=== PATIENT | female | born 2000 | race Caucasian/White ===

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

== ENCOUNTER 2021-01-07 07:10 | Emergency (ER) | payer OTHER ==
[2021-01-07 08:08] LABS: BASOPHIL 1.3 % (0-2); HCT 37.1 % (37.0-47.0); HGB 11.6 g/dl (12.5-16.0); LYMPHOCYTE 43.1 % (15-48); MCH 26.4 pg (25.0-31.0); MCHC 31.3 g/dL (32.0-36.0); MCV 84.5 fL (78.0-100.0); MONOCYTE 10.6 % (0-12); MPV 10.3 fL (6.0-9.5); NEUTROPHIL 42.8 % (41-80); NRBC 0; PLT 312 K/uL (150-400); RBC 4.39 M/uL (4.20-5.40); RDW 13.5 % (11.5-14.0); WBC 6.4 K/uL (4.0-10.5)
[2021-01-07 08:10] LABS: BILIRUBIN NEGATIVE (NEGATIVE); BLOOD NEGATIVE Ery/uL (NEGATIVE); CLARITY CLEAR (CLEAR); COLOR YELLOW (YELLOW); GLUCOSE (U) NORMAL (NORMAL); LEUKOCYTES NEGATIVE Leu/uL (NEGATIVE); NITRITE NEGATIVE (NEGATIVE); PROTEIN NEGATIVE (NEGATIVE); UROBILINOGEN 0.2 mg/dL (0.2-1.0)
[2021-01-07 08:21] LABS: BUN 11 mg/dL (7-18); BUN/CREAT RATIO (CALC) 13.9 RATIO; CHLORIDE 106 mmol/L (98-107); CO2 (BICARBONATE) 24 mmol/L (21-32); CREATININE 0.79 mg/dL (0.51-0.95); GLUCOSE 96 mg/dL (74-106); POTASSIUM 4.3 mmol/L (3.5-5.1)
[2021-01-07 08:24] LABS: C-REACTIVE PROTEIN < 0.20 mg/dL (<=0.90)
== END 2021-01-07 10:11 | disposition home or self-care (01) ==
LOC: FER 07:10
PROVIDERS: Emergency Medicine
DX: R51.9 Headache, unspecified (principal); M54.2 Cervicalgia; Z20.822 Contact with and (suspected) exposure to COVID-19
CPT/HCPCS: 36415; 70551; 80048; 81003; 85025; 86140; J0780; J1200; J1885; J2405; J7030; U0002

== ENCOUNTER 2021-03-06 01:10 | Emergency (ER) | payer OTHER ==
[2021-03-06 02:09] LABS: BASOPHIL 0.9 % (0-2); HCT 35.6 % (37.0-47.0); HGB 11.4 g/dl (12.5-16.0); LYMPHOCYTE 29.3 % (15-48); MCH 26.1 pg (25.0-31.0); MCV 81.7 fL (78.0-100.0); MONOCYTE 8.9 % (0-12); MPV 10.5 fL (6.0-9.5); NEUTROPHIL 59.8 % (41-80); NRBC 0; PLT 312 K/uL (150-400); RBC 4.36 M/uL (4.20-5.40); RDW 14.6 % (11.5-14.0); WBC 9.2 K/uL (4.0-10.5)
[2021-03-06 02:26] LABS: BILIRUBIN - TOTAL 0.4 mg/dL (0.2-1.0); BUN/CREAT RATIO (CALC) 15.5 RATIO; CREATININE 0.84 mg/dL (0.51-0.95); GLOBULIN (CALCULATION) 3.3 g/dL; POTASSIUM 3.6 mmol/L (3.5-5.1); TOTAL PROTEIN 7.3 g/dL (6.4-8.2)
[2021-03-06] MEDS ORDERED: CARAFATE1 GM PO (03:33)
== END 2021-03-06 03:45 | disposition home or self-care (01) ==
LOC: FER 01:10
PROVIDERS: Emergency Medicine Emergency Medical Services
DX: R51.9 Headache, unspecified (principal); R07.89 Other chest pain
CPT/HCPCS: 36415; 71045; 80053; 84484; 85025; 93005; J1885; J2405; J7030

== ENCOUNTER 2021-04-21 15:06 | Emergency (ER) | payer OTHER ==
[2021-04-21 16:03] LABS: BASOPHIL 0.7 % (0-2); EOSINOPHIL 1.5 % (0-5); HCT 34.6 % (37.0-47.0); HGB 11.3 g/dl (12.5-16.0); LYMPHOCYTE 17.1 % (15-48); MCH 26.7 pg (25.0-31.0); MCHC 32.7 g/dL (32.0-36.0); MCV 81.6 fL (78.0-100.0); MONOCYTE 10.2 % (0-12); MPV 10.7 fL (6.0-9.5); NEUTROPHIL 70.2 % (41-80); NRBC 0; PLT 336 K/uL (150-400); RBC 4.24 M/uL (4.20-5.40); RDW 15.4 % (11.5-14.0); WBC 14.5 K/uL (4.0-10.5)
[2021-04-21 16:31] LABS: BILIRUBIN NEGATIVE (NEGATIVE); BLOOD NEGATIVE Ery/uL (NEGATIVE); CLARITY CLEAR (CLEAR); COLOR YELLOW (YELLOW); GLUCOSE (U) NORMAL (NORMAL); LEUKOCYTES NEGATIVE Leu/uL (NEGATIVE); NITRITE NEGATIVE (NEGATIVE); PROTEIN NEGATIVE (NEGATIVE); SPECIFIC GRAVITY 1.015 (1.001-1.030); UROBILINOGEN 0.2 mg/dL (0.2-1.0); pH 8.5 (5.0-9.0)
[2021-04-21 17:05] LABS: ALBUMIN 4.3 g/dL (3.4-5.0); BILIRUBIN - TOTAL 0.3 mg/dL (0.2-1.0); BUN/CREAT RATIO (CALC) 14.3 RATIO; CREATININE 0.7 mg/dL (0.51-0.95); GLOBULIN (CALCULATION) 3.1 g/dL; POTASSIUM 3.5 mmol/L (3.5-5.1); TOTAL PROTEIN 7.4 g/dL (6.4-8.2)
[2021-04-21] MEDS ORDERED: ZOFRAN4 M1 PO (17:27)
== END 2021-04-21 18:11 | disposition home or self-care (01) ==
LOC: FER 15:06
PROVIDERS: Physician Assistant
DX: U07.1 COVID-19 (principal)
CPT/HCPCS: 36415; 80053; 81001; 85025; 93005; J2405; J7040; U0002

== ENCOUNTER 2021-07-15 00:42 | Emergency (ER) | payer OTHER | END 2021-07-15 01:40 | disposition home or self-care (01) | LOC: FER 00:42 | DX: K21.9 Gastro-esophageal reflux disease without esophagitis (principal); R07.89 Other chest pain; Z20.822 Contact with and (suspected) exposure to COVID-19 | CPT/HCPCS: 36415; 71045; 84484; 93005; U0002 ==

== ENCOUNTER 2021-08-26 23:08 | Emergency (ER) | payer OTHER ==
[2021-08-27 00:55] LABS: BILIRUBIN 1+ mg/dL (NEGATIVE); BLOOD NEGATIVE Ery/uL (NEGATIVE); CLARITY CLEAR (CLEAR); COLOR YELLOW (YELLOW); GLUCOSE (U) NORMAL (NORMAL); LEUKOCYTES NEGATIVE Leu/uL (NEGATIVE); NITRITE NEGATIVE (NEGATIVE); PROTEIN TRACE (LOW) mg/dL (NEGATIVE); SPECIFIC GRAVITY >=1.030 (1.001-1.030); UROBILINOGEN 0.2 mg/dL (0.2-1.0); pH 6.5 (5.0-9.0)
[2021-08-27 00:55] LABS: BASOPHIL 1.2 % (0-2); EOSINOPHIL 1.9 % (0-5); HCT 37.6 % (37.0-47.0); HGB 12.5 g/dl (12.5-16.0); LYMPHOCYTE 41.3 % (15-48); MCH 27.8 pg (25.0-31.0); MCHC 33.2 g/dL (32.0-36.0); MCV 83.7 fL (78.0-100.0); MPV 10.7 fL (6.0-9.5); NEUTROPHIL 46.5 % (41-80); NRBC 0; PLT 323 K/uL (150-400); RBC 4.49 M/uL (4.20-5.40); RDW 13.1 % (11.5-14.0); WBC 9.4 K/uL (4.0-10.5)
[2021-08-27 01:18] LABS: ALBUMIN 4.7 g/dL (3.4-5.0); BILIRUBIN - TOTAL 0.4 mg/dL (0.2-1.0); BUN/CREAT RATIO (CALC) 11.9 RATIO; CREATININE 0.84 mg/dL (0.51-0.95); POTASSIUM 3.4 mmol/L (3.5-5.1); TOTAL PROTEIN 7.7 g/dL (6.4-8.2)
== END 2021-08-27 03:20 | disposition home or self-care (01) ==
LOC: FER 23:08
PROVIDERS: Emergency Medicine
DX: R10.13 Epigastric pain (principal)
CPT/HCPCS: 36415; 80053; 81003; 82150; 83690; 85025; C9113; J2405; J7030; Q9967

== ENCOUNTER 2021-08-30 01:43 | Emergency (ER) | payer OTHER ==
[2021-08-30] MEDS ORDERED: ATARAX25 MG PO (16:06)
[2021-08-30] MEDS ORDERED: BACLOFEN 10MG T10 MG PO (16:06)
[2021-08-30] MEDS ORDERED: NAPROXEN500 MG PO (16:06)
== END 2021-08-30 03:53 | disposition home or self-care (01) ==
LOC: FER 01:43
DX: G43.909 Migraine, unspecified, not intractable, without status migrainosus (principal)
CPT/HCPCS: J0780; J1200; J1885; J2405; J7030

== ENCOUNTER 2021-08-30 14:01 | Emergency (ER) | payer OTHER ==
[2021-08-30 14:47] LABS: BILIRUBIN NEGATIVE (NEGATIVE); BLOOD 1+ Ery/uL (NEGATIVE); CLARITY CLEAR (CLEAR); COLOR YELLOW (YELLOW); GLUCOSE (U) NORMAL (NORMAL); LEUKOCYTES NEGATIVE Leu/uL (NEGATIVE); NITRITE NEGATIVE (NEGATIVE); PROTEIN NEGATIVE (NEGATIVE); UROBILINOGEN 0.2 mg/dL (0.2-1.0)
[2021-08-30 14:50] LABS: BASOPHIL 1.3 % (0-2); HCT 37.6 % (37.0-47.0); HGB 12.2 g/dl (12.5-16.0); LYMPHOCYTE 23.8 % (15-48); MCH 27.9 pg (25.0-31.0); MCHC 32.4 g/dL (32.0-36.0); MCV 85.8 fL (78.0-100.0); MPV 10.7 fL (6.0-9.5); NEUTROPHIL 62.9 % (41-80); NRBC 0; PLT 295 K/uL (150-400); RBC 4.38 M/uL (4.20-5.40); RDW 13.2 % (11.5-14.0); WBC 7.8 K/uL (4.0-10.5)
[2021-08-30 14:53] LABS: BARBITURATES NEGATIVE (NEGATIVE); ECSTASY (MDMA) NEGATIVE (NEGATIVE); MARIJUANA (THC) NEGATIVE (NEGATIVE); METHADONE NEGATIVE (NEGATIVE); OPIATES NEGATIVE (NEGATIVE)
[2021-08-30 14:54] LABS: AMPHETAMINES NEGATIVE (NEGATIVE); OXYCODONE NEGATIVE (NEGATIVE)
[2021-08-30 15:02] LABS: BACTERIA 1+; URINARY RBC RARE
[2021-08-30 15:27] LABS: BUN/CREAT RATIO (CALC) 11.5 RATIO; CREATININE 0.87 mg/dL (0.51-0.95); POTASSIUM 3.3 mmol/L (3.5-5.1)
[2021-08-30] MEDS ORDERED: BACLOFEN 10MG T10 MG PO (16:06)
[2021-08-30] MEDS ORDERED: ATARAX25 MG PO (16:06)
[2021-08-30] MEDS ORDERED: NAPROXEN500 MG PO (16:06)
== END 2021-08-30 16:26 | disposition home or self-care (01) ==
LOC: FER 14:01
PROVIDERS: Nurse Practitioner Family
DX: M62.838 Other muscle spasm (principal); F41.9 Anxiety disorder, unspecified
CPT/HCPCS: 36415; 71045; 80048; 80305; 81001; 84439; 84443; 85025; J2060; J2405; J7030

== ENCOUNTER 2021-09-11 04:48 | Emergency (ER) | payer OTHER ==
[~2021-09-11 04:48] MED LIST changes: +ATARAX25 MG PO; +BACLOFEN 10MG T10 MG PO; +NAPROXEN500 MG PO
[2021-09-11 06:14] LABS: BASOPHIL 0.3 % (0-2); EOSINOPHIL 0.4 % (0-5); HCT 41.2 % (37.0-47.0); HGB 13.6 g/dl (12.5-16.0); LYMPHOCYTE 5.8 % (15-48); MCH 28.1 pg (25.0-31.0); MCV 85.1 fL (78.0-100.0); MONOCYTE 8.5 % (0-12); MPV 10.5 fL (6.0-9.5); NEUTROPHIL 84.6 % (41-80); NRBC 0; PLT 301 K/uL (150-400); RBC 4.84 M/uL (4.20-5.40); RDW 12.9 % (11.5-14.0); WBC 19.8 K/uL (4.0-10.5)
[2021-09-11 06:36] LABS: ALBUMIN 4.8 g/dL (3.4-5.0); BILIRUBIN - TOTAL 0.4 mg/dL (0.2-1.0); BUN/CREAT RATIO (CALC) 11.1 RATIO; CREATININE 0.81 mg/dL (0.51-0.95); GLOBULIN (CALCULATION) 3.2 g/dL; POTASSIUM 3.6 mmol/L (3.5-5.1)
[2021-09-11 06:51] LABS: CORONAVIRUS 2019 SARS-COV-2 NEGATIVE (NEGATIVE); INFLUENZA A NAA NEGATIVE (NEGATIVE)
[2021-09-11] MEDS ORDERED: ONDANSETRON ODT4 MG PO (08:17)
== END 2021-09-11 09:32 | disposition home or self-care (01) ==
LOC: FER 04:48
PROVIDERS: Internal Medicine
DX: K59.00 Constipation, unspecified (principal); Z20.822 Contact with and (suspected) exposure to COVID-19; Z28.310 Unvaccinated for COVID-19
CPT/HCPCS: 36415; 80053; 83690; 84145; 85025; J2405; J2550; J7120; U0002